=== PATIENT | male | born 1965 | race Caucasian/White ===

== ENCOUNTER 2016-08-04 12:08 | Inpatient (IN) | payer OTHER ==
[2016-08-04 12:47] VITALS: BMI 24.1
--- NOTE | 2016-08-04 13:51 | HP ---
COWS - Scale Resting Pulse: 0= [place] 80 or Below Sweatin= Chills/Flushing Restless Observation: 3= Extraneous Movement Pupil Size: 2= Moderately Dilated Bone or Joint Aches: 4=Acute Joint/Muscle Pain Runny Nose/ Eye Tearin= Runny Nose/Eyes GI Upset > 30mins: 2= Nausea/Diarrhea Tremor Observation: 1= Tremor [place], Not Seen Yawning Observation: 2= >3x During Session Anxiety or Irritability: 1=Feels Anxious/Irritable Goose Flesh Skin: 0=Smooth Skin COWS Score: 18 Admission ROS S - HPI Chief Complaint: DETOX TX OR HEROIN DEPENDENCE Allergies/Adverse Reactions: Allergies Allergy/AdvReac Type Severity Reaction Status Date / Time Fish Containing Products Allergy Severe Rash Verified 08/04/16 12:56 No Known Drug Allergies Allergy Verified 08/04/16 12:56 History of Present Illness: 50 Y/O MALE WITH A HX OF ALCOHOL DEPENDENCE SEEKING DETOX [place] Exam Limitations: No Limitations - Ebola screening Have you traveled outside of the country in the last 21 days: No Have you had contact with anyone from an Ebola affected area: No Have you been sick,other than usual withdrawal symptoms: No Do you have a fever: No - Review of Systems Constitutional: Chills, Loss of Appetite, Night Sweats, Changes in sleep, Unintentional Wgt. Loss EENT: reports: Blurred Vision (WEARS GLASSES), Tearing, Nose Congestion, Dental Problems (MISSING TOP TEETH) Respiratory: reports: Shortness of Breath (HX ASTHMA), Wheezing Cardiac: reports: Lightheadedness GI: reports: Diarrhea, Nausea, Poor Appetite, Poor Fluid Intake, Vomiting : reports: No Symptoms Reported Musculoskeletal: reports: Back Pain, Joint Pain, Muscle Pain Integumentary: reports: No Symptoms Reported Neuro: reports: Headache, Numbness, Tingling, Tremors, Unsteady Gait (HX RIGHT FOOT DROP) Endocrine: reports: No Symptoms Reported Hematology: reports: No Symptoms Reported Psychiatric: reports: Orientated x3, Anxious Other Systems: Reviewed and Negative Patient History - Patient Medical History Hx Anemia: No Hx Asthma: Yes (MDI) Hx Chronic Obstructive Pulmonary Disease (COPD): No Hx Cancer: No Hx Cardiac Disorders: No Hx Congestive Heart Failure: No Hx Hypertension: No Hx Hypercholesterolemia: No Hx Pacemaker: No HX Cerebrovascular Accident: No Hx Seizures: No Hx Dementia: No Hx Diabetes: No Hx Gastrointestinal Disorders: No Hx Liver Disease: No Hx Genitourinary Disorders: No Hx Sexually Transmitted Disorders: No Hx Renal Disease (ESRD): No Hx Thyroid Disease: No Hx Human Immunodeficiency Virus (HIV): No (NEGATIVE HX) Hx Hepatitis C: No Hx Depression: No Hx Suicide Attempt: No (DENIES) Hx Bipolar Disorder: No Hx Schizophrenia: No - Patient Surgical History Past Surgical History: Yes Hx Neurologic Surgery: No Hx Cataract Extraction: No Hx Cardiac Surgery: No Hx Lung Surgery: No Hx Breast Surgery: No Hx Breast Biopsy: No Hx Abdominal Surgery: No Hx Appendectomy: No Hx Cholecystectomy: No Hx Genitourinary Surgery: No Hx Section: No Hx Orthopedic Surgery: Yes (11/02/2010 - spinal fusion) Other Surgical History: Spinal sx 05/01 [facility] to remove hardware Anesthesia Reaction: No - PPD History Documented Results: Positive w/proof Implanted On Prior [facility] Admission?: No Date: 04/10/15 Results: cxr 04/30/16 PPD to be Administered?: No - Reproductive History Patient is a Female of Child Bearing Age (11 -55 yrs old): No (MALE) - Smoking Cessation Smoking history: Current every day smoker Have you smoked in the past 12 months: Yes Aproximately how many cigarettes per day: 2 Cigars Per Day: 0 Hx Chewing Tobacco Use: No Initiated information on smoking cessation: Yes 'Breaking Loose' booklet given: 08/04/16 - Substance & Tx. History Hx Alcohol Use: No Hx Substance Use: Yes (HEROIN) Substance Use Type: Heroin Hx Substance Use Treatment: Yes ([facility] [[email or web address] - Substances Abused Heroin Route: Inhalation Frequency: Daily Amount used: 5-6 bags Age of first use: 46 Date of Last Use: 08/03/16 Family Disease History - Family Disease History Family Disease History: Diabetes: Grandparent (MATERNAL GM/GGF-DECEEASED) Admission Physical Exam BHS - Vital Signs Vital Signs: Vital Signs - 24 hr 08/04/16 12:45 Temperature 97.6 F Pulse Rate 73 Respiratory 18 Rate Blood Pressure 113/68 - Physical General Appearance: Yes: Mild Distress, Moderate Distress, Irritable, Anxious HEENTM: Yes: EOMI, Normocephalic, SHERRON, Pharynx Normal Respiratory: Yes: Chest Non-Tender, Lungs Clear, Normal Breath Sounds, No Respiratory Distress Neck: Yes: Supple, Trachea in good position Breast: Yes: Breast Exam Deferred Cardiology: Yes: Regular Rhythm, Regular Rate, S1, S2 Abdominal: Yes: Normal Bowel Sounds, Non Tender, Flat, Soft Genitourinary: Yes: Other (N/C) Musculoskeletal: Yes: full range of Motion, Gait Steady Extremities: Yes: Normal Range of Motion, Non-Tender Neurological: Yes: sales coordinator II-XII NML intact, Fully Oriented, Alert, Motor Strength 5/5 Integumentary: Yes: Dry, Warm Lymphatic: Yes: Within Normal Limits - Diagnostic (1) Chronic back pain Current Visit: No Status: Acute Qualifiers: Back pain location: back pain in unspecified location Back pain laterality: unspecified Qualified Code(s): M54.9 - Dorsalgia, unspecified ; G89.29 - Other chronic pain (2) Nicotine dependence Current Visit: Yes Status: Chronic (3) Opioid dependence with withdrawal Current Visit: Yes Status: Acute (4) Asthma Current Visit: Yes Status: Chronic (5) History of right foot drop Current Visit: Yes Status: Chronic Cleared for Admission [facility] - Detox or Rehab [facility] Level of Care: Medically Managed Detox Regimen/Protocol: Methadone [facility] Breath Alcohol Content Breath Alcohol Content: 0 Urine Drug Screen - Results Drug Screen Negative: No Urine Drug Screen Results: OPI-Opiates
[2016-08-04] MEDS ORDERED: IBUPROFEN 400 MG TABLET (FP) PO PRN (13:57)
[2016-08-04] MEDS ORDERED: MAG HYDROX/AL HYDROX/SIMETH 30 ML UNIT-DOSE CUP PO PRN (13:57)
[2016-08-04] MEDS ORDERED: hydrOXYzine PAMOATE 25 MG CAPSULE (FP) PO PRN (13:57)
[2016-08-04] MEDS ORDERED: guaiFENesin/D-METHORPHAN HB 10 ML UNIT-DOSE CUPS PO PRN (13:57)
[2016-08-04] MEDS ORDERED: MAGNESIUM HYDROX 2400MG/30ML ORAL SUSPENSION 30 ML CUP PO PRN (13:57)
[2016-08-04] MEDS ORDERED: MAGNESIUM CITRATE 300 ML BOTTLE PO PRN (13:57)
[2016-08-04] MEDS ORDERED: LOPERAMIDE HCL 2 MG CAPSULE PO PRN (13:57)
[2016-08-04] MEDS ORDERED: P-EPHED 60MG/TRIPROLIDI 2.5MG TABLET PO PRN (13:57)
[2016-08-04] MEDS ORDERED: ACETAMINOPHEN 325 MG TABLET (FP) PO PRN (13:57)
[2016-08-04] MEDS ORDERED: NICOTINE POLACRILEX 2 MG GUM BUC PRN (13:57)
[2016-08-04] MEDS ORDERED: MENTHOL/PHENOL 1 EACH UD MM PRN (13:57)
[2016-08-04] MEDS ORDERED: ALBUTEROL SO4 6.7 GM HFA INHALER IH PRN (13:58)
[2016-08-04] MEDS ORDERED: METHADONE HCL 10 MG TABLET (FOR DETOX USE ONLY) PO ONE ×2 (14:33→23:00)
[2016-08-04] MEDS: diazePAM 5 MG TABLET PO PRN ×2 (15:44→18:55)
--- NOTE | 2016-08-04 18:17 | PN ---
S Progress Note Note: RECEIVED NURSE CALL PATIENT REQUESTS ENSURE BMI 24.1 ENSURE 120 ML BID
[2016-08-04 19:01] LABS: URINE APPEARANCE CLEAR; URINE BILIRUBIN NEGATIVE (NEGATIVE); URINE BLOOD NEGATIVE (NEGATIVE); URINE COLOR LTYELLOW; URINE GLUCOSE (UA) NEGATIVE (NEGATIVE); URINE KETONE NEGATIVE (NEGATIVE); URINE LEUK ESTERASE NEGATIVE (NEGATIVE); URINE NITRITE NEGATIVE (NEGATIVE); URINE PROTEIN NEGATIVE (NEGATIVE); URINE UROBILINOGEN NEGATIVE E.U./dl (0.2-1.0)
[2016-08-04] MEDS: THIAMINE HCL 100 MG TABLET (FP) PO SCH (22:28)
[2016-08-04] MEDS: diphenhydrAMINE HCL 50 MG CAPSULE PO PRN (22:28)
[2016-08-04] MEDS: BUDESONIDE/FORMETEROL FUMARATE 80/4.5 mcg INHALER IH SCH (22:29)
[2016-08-05] MEDS: diazePAM 5 MG TABLET PO PRN ×5 (05:53→22:32)
[2016-08-05] MEDS ORDERED: METHADONE HCL 10 MG TABLET (FOR DETOX USE ONLY) PO ONE (10:00)
[2016-08-05] MEDS: PRENATAL VITAMINS W/ FOLIC ACID TABLET (FP) PO SCH (10:19)
[2016-08-05] MEDS: BUDESONIDE/FORMETEROL FUMARATE 80/4.5 mcg INHALER IH SCH ×2 (10:19→22:33)
[2016-08-05 10:37] LABS: MCH 29.2 pg (25.7-33.7); MCHC 33.1 g/dl (32.0-35.9); MEAN CELL VOLUME 88.2 fl (80-96); MEAN PLT VOLUME 8.2 fl (7.5-11.1); PLATELET COUNT 344 K/MM3 (134-434); RDW 16.6 % (11.9-15.9); WHITE BLOOD COUNT 6.6 K/mm3 (4.0-10.0)
--- NOTE | 2016-08-05 10:46 | PN ---
BHS COWS - Scale Resting Pulse: 0= [place] 80 or Below Sweatin= Chills/Flushing Restless Observation: 3= Extraneous Movement Pupil Size: 2= Moderately Dilated Bone or Joint Aches: 4=Acute Joint/Muscle Pain Runny Nose/ Eye Tearin= Nasal Congestion GI Upset > 30mins: 1= Stomach Cramp Tremor Observation of Outstretched Hands: 2= Slight Tremor Visible Yawning Observation: 1= 1-2x During Session Anxiety or Irritability: 2=Irritable/Anxious Goose Flesh Skin: 0=Smooth Skin COWS Score: 17 BHS Progress Note (SOAP) Subjective: ANXIET,SWEATS/CHILLS,FATIGUE,BODYACHES Objective: 08/05/16 10:51 Vital Signs Temperature 97.3 F L 08/05/16 09:57 Pulse Rate 100 H 08/05/16 09:57 Respiratory Rate 20 08/05/16 09:57 Blood Pressure 120/84 08/05/16 09:57 O2 Sat by Pulse Oximetry (%) Laboratory Last Values Urine Color Ltyellow 08/04/16 15:00 Urine Appearance Clear 08/04/16 15:00 Urine pH 6.0 (5.0-8.0) 08/04/16 15:00 Ur Specific [place] 1.014 (1.001-1.035) 08/04/16 15:00 Urine Protein Negative (NEGATIVE) 08/04/16 15:00 Urine Glucose (UA) Negative (NEGATIVE) 08/04/16 15:00 Urine Ketones Negative (NEGATIVE) 08/04/16 15:00 Urine Blood Negative (NEGATIVE) 08/04/16 15:00 Urine Nitrite Negative (NEGATIVE) 08/04/16 15:00 Urine Bilirubin Negative (NEGATIVE) 08/04/16 15:00 Urine Urobilinogen Negative E.U./dl (0.2-1.0) 08/04/16 15:00 Ur Leukocyte Esterase Negative (NEGATIVE) 08/04/16 15:00 Assessment: 08/05/16 10:51 WITHDRAWAL SX Plan: CONTINUE DETOX
[2016-08-05 11:34] LABS: ALBUMIN 3.6 g/dl (3.4-5.0); ALK PHOS 113 U/L (45-117); ANION GAP 8 (8-16); BILIRUBIN,TOTAL 0.3 mg/dL (0.2-1.0); CALCIUM 8.8 mg/dL (8.5-10.1); CO2 30 mmol/L (21-32); CREATININE 0.9 mg/dL (0.7-1.3); GLUCOSE,RANDOM 134 mg/dL (74-106); SGOT/AST 20 U/L (15-37); SGPT/ALT 23 U/L (12-78); TOT PROT 7.3 g/dl (6.4-8.2)
--- NOTE | 2016-08-05 15:35 | EKG ---
Test Reason : Blood Pressure : / mmHG Vent. Rate : 063 BPM Atrial Rate : 063 BPM P-R Int : 134 ms QRS Dur : 090 ms QT Int : 414 ms P-R-T Axes : 055 064 058 degrees QTc Int : 423 ms NORMAL SINUS RHYTHM Confirmed by LUIS VASQUEZ MD ([id number]) on 08/05/2016 3:34:38 PM Referred By: Confirmed By:LUIS VASQUEZ MD
[2016-08-05] MEDS: THIAMINE HCL 100 MG TABLET (FP) PO SCH (22:32)
[2016-08-05] MEDS: diphenhydrAMINE HCL 50 MG CAPSULE PO PRN (22:33)
[2016-08-06] MEDS: diazePAM 5 MG TABLET PO PRN ×5 (05:48→22:32)
[2016-08-06] MEDS ORDERED: METHADONE HCL 5 MG TABLET (FOR DETOX USE ONLY) PO ONE (10:00)
[2016-08-06] MEDS: PRENATAL VITAMINS W/ FOLIC ACID TABLET (FP) PO SCH (10:12)
[2016-08-06] MEDS: BUDESONIDE/FORMETEROL FUMARATE 80/4.5 mcg INHALER IH SCH ×2 (10:13→22:32)
--- NOTE | 2016-08-06 10:58 | PN ---
BHS COWS - Scale Resting Pulse: 1= [place] 81-100 Sweatin=Flushed/Facial Moisture Restless Observation: 3= Extraneous Movement Pupil Size: 0= Normal to Room Light Bone or Joint Aches: 2= Severe Diffuse Aches Runny Nose/ Eye Tearin= Nasal Congestion GI Upset > 30mins: 2= Nausea/Diarrhea Tremor Observation of Outstretched Hands: 2= Slight Tremor Visible Yawning Observation: 0= None Anxiety or Irritability: 2=Irritable/Anxious Goose Flesh Skin: 0=Smooth Skin COWS Score: 15 BHS Progress Note (SOAP) Subjective: sleep interruption,generalized pain,nausea, shakes and sweats Objective: 08/06/16 10:57 Vital Signs 08/06/16 08/06/16 08/06/16 03:30 06:27 10:53 Temperature 97.6 F 97.9 F Pulse Rate 87 104 H Respiratory 20 18 19 Rate Blood Pressure 105/76 122/85 Laboratory Last Values WBC 6.6 K/mm3 (4.0-10.0) 08/05/16 06:15 RBC 4.76 M/mm3 (4.00-5.60) D 08/05/16 06:15 Hgb 13.9 GM/dL (11.7-16.9) D 08/05/16 06:15 Hct 41.9 % (35.4-49) D 08/05/16 06:15 MCV 88.2 fl (80-96) 08/05/16 06:15 MCHC 33.1 g/dl (32.0-35.9) 08/05/16 06:15 RDW 16.6 % (11.9-15.9) H 08/05/16 06:15 Plt Count 344 K/MM3 (134-434) D 08/05/16 06:15 MPV 8.2 fl (7.5-11.1) 08/05/16 06:15 Sodium 139 mmol/L (136-145) 08/05/16 06:15 Potassium 4.2 mmol/L (3.5-5.1) 08/05/16 06:15 Chloride 101 mmol/L (98-107) 08/05/16 06:15 Carbon Dioxide 30 mmol/L (21-32) 08/05/16 06:15 Anion Gap 8 (8-16) 08/05/16 06:15 BUN 11 mg/dL (7-18) D 08/05/16 06:15 Creatinine 0.9 mg/dL (0.7-1.3) D 08/05/16 06:15 Creat Clearance w eGFR > 60 (>60) 08/05/16 06:15 Random Glucose 134 mg/dL (74-106) H D 08/05/16 06:15 Calcium 8.8 mg/dL (8.5-10.1) 08/05/16 06:15 Total Bilirubin 0.3 mg/dL (0.2-1.0) D 08/05/16 06:15 AST 20 U/L (15-37) 08/05/16 06:15 ALT 23 U/L (12-78) 08/05/16 06:15 Alkaline Phosphatase 113 U/L (45-117) 08/05/16 06:15 Total Protein 7.3 g/dl (6.4-8.2) D 08/05/16 06:15 Albumin 3.6 g/dl (3.4-5.0) D 08/05/16 06:15 Urine Color Ltyellow 08/04/16 15:00 Urine Appearance Clear 08/04/16 15:00 Urine pH 6.0 (5.0-8.0) 08/04/16 15:00 Ur Specific [place] 1.014 (1.001-1.035) 08/04/16 15:00 Urine Protein Negative (NEGATIVE) 08/04/16 15:00 Urine Glucose (UA) Negative (NEGATIVE) 08/04/16 15:00 Urine Ketones Negative (NEGATIVE) 08/04/16 15:00 Urine Blood Negative (NEGATIVE) 08/04/16 15:00 Urine Nitrite Negative (NEGATIVE) 08/04/16 15:00 Urine Bilirubin Negative (NEGATIVE) 08/04/16 15:00 Urine Urobilinogen Negative E.U./dl (0.2-1.0) 08/04/16 15:00 Ur Leukocyte Esterase Negative (NEGATIVE) 08/04/16 15:00 RPR Titer Nonreactive (NONREACTIVE) 08/05/16 06:15 Labs noted Assessment: 08/06/16 10:58 withdrawal sx Plan: continue detox
[2016-08-06] MEDS: THIAMINE HCL 100 MG TABLET (FP) PO SCH (22:32)
[2016-08-07] MEDS: diazePAM 5 MG TABLET PO PRN ×3 (02:29→13:28)
[2016-08-07] MEDS ORDERED: METHADONE HCL 5 MG TABLET (FOR DETOX USE ONLY) PO ONE (10:00)
[2016-08-07] MEDS: PRENATAL VITAMINS W/ FOLIC ACID TABLET (FP) PO SCH (10:18)
[2016-08-07] MEDS: BUDESONIDE/FORMETEROL FUMARATE 80/4.5 mcg INHALER IH SCH ×2 (10:18→22:11)
--- NOTE | 2016-08-07 13:58 | PN ---
S Progress Note (SOAP) Subjective: Nausea, diarrhea, interrupted sleep (benadryl ineffective, wants ambien), sweating Objective: 08/07/16 13:56 Last Vital Signs Temp Pulse Resp BP Pulse Ox 96 F L 98 H 20 132/82 08/07/16 11:31 08/07/16 11:31 08/07/16 11:31 08/07/16 11:31 Laboratory Tests 08/04/16 08/05/16 08/05/16 15:00 06:15 06:15 WBC 6.6 RBC 4.76 D Hgb 13.9 D Hct 41.9 D MCV 88.2 MCHC 33.1 RDW 16.6 H Plt Count 344 D MPV 8.2 Sodium 139 Potassium 4.2 Chloride 101 Carbon Dioxide 30 Anion Gap 8 BUN 11 D Creatinine 0.9 D Creat Clearance w eGFR > 60 Random Glucose 134 H D Calcium 8.8 Total Bilirubin 0.3 D AST 20 ALT 23 Alkaline Phosphatase 113 Total Protein 7.3 D Albumin 3.6 D Urine Color Ltyellow Urine Appearance Clear Urine pH 6.0 Ur Specific [place] 1.014 Urine Protein Negative Urine Glucose (UA) Negative Urine Ketones Negative Urine Blood Negative Urine Nitrite Negative Urine Bilirubin Negative Urine Urobilinogen Negative Ur Leukocyte Esterase Negative RPR Titer 08/05/16 06:15 WBC RBC Hgb Hct MCV MCHC RDW Plt Count MPV Sodium Potassium Chloride Carbon Dioxide Anion Gap BUN Creatinine Creat Clearance w eGFR Random Glucose Calcium Total Bilirubin AST ALT Alkaline Phosphatase Total Protein Albumin Urine Color Urine Appearance Urine pH Ur Specific [place] Urine Protein Urine Glucose (UA) Urine Ketones Urine Blood Urine Nitrite Urine Bilirubin Urine Urobilinogen Ur Leukocyte Esterase RPR Titer Nonreactive Labs noted: serum glucose 134 Assessment: 08/07/16 13:57 Withdrawal symptoms Noted with Hyperglycemia Plan: Continue detox Hyperglycemia: monitor
[2016-08-07] MEDS ORDERED: ZOLPIDEM TARTRATE 10 MG TABLET (PARK CARE ONLY) PO PRN (14:00)
[2016-08-07] MEDS: THIAMINE HCL 100 MG TABLET (FP) PO SCH (22:12)
[2016-08-07] MEDS: diphenhydrAMINE HCL 50 MG CAPSULE PO PRN (22:12)
[2016-08-08] MEDS ORDERED: METHADONE HCL 10 MG TABLET (FOR DETOX USE ONLY) PO ONE (10:00)
[2016-08-08] MEDS ORDERED: ONDANSETRON *ODT* 4 MG TABLET SL ONE (10:01)
[2016-08-08] MEDS ORDERED: ONDANSETRON *ODT* 4 MG TABLET SL PRN (10:01)
[2016-08-08] MEDS: PRENATAL VITAMINS W/ FOLIC ACID TABLET (FP) PO SCH (10:10)
[2016-08-08] MEDS: BUDESONIDE/FORMETEROL FUMARATE 80/4.5 mcg INHALER IH SCH ×2 (10:11→22:42)
--- NOTE | 2016-08-08 10:16 | PN ---
BHS Progress Note (SOAP) Subjective: NAUSEA,SWEATING,INTERRUPTED SLEEP,RESTLESS. Objective: 08/08/16 10:14 Vital Signs - 8 hr 08/08/16 08/08/16 08/08/16 03:43 06:13 09:27 Temperature 96.6 F L 98.8 F Pulse Rate 102 H 106 H Respiratory 18 18 18 Rate Blood Pressure 123/78 134/85 Laboratory Tests 08/04/16 08/05/16 08/05/16 15:00 06:15 06:15 WBC 6.6 RBC 4.76 D Hgb 13.9 D Hct 41.9 D MCV 88.2 MCHC 33.1 RDW 16.6 H Plt Count 344 D MPV 8.2 Sodium 139 Potassium 4.2 Chloride 101 Carbon Dioxide 30 Anion Gap 8 BUN 11 D Creatinine 0.9 D Creat Clearance w eGFR > 60 Random Glucose 134 H D Calcium 8.8 Total Bilirubin 0.3 D AST 20 ALT 23 Alkaline Phosphatase 113 Total Protein 7.3 D Albumin 3.6 D Urine Color Ltyellow Urine Appearance Clear Urine pH 6.0 Ur Specific [place] 1.014 Urine Protein Negative Urine Glucose (UA) Negative Urine Ketones Negative Urine Blood Negative Urine Nitrite Negative Urine Bilirubin Negative Urine Urobilinogen Negative Ur Leukocyte Esterase Negative RPR Titer 08/05/16 06:15 WBC RBC Hgb Hct MCV MCHC RDW Plt Count MPV Sodium Potassium Chloride Carbon Dioxide Anion Gap BUN Creatinine Creat Clearance w eGFR Random Glucose Calcium Total Bilirubin AST ALT Alkaline Phosphatase Total Protein Albumin Urine Color Urine Appearance Urine pH Ur Specific [place] Urine Protein Urine Glucose (UA) Urine Ketones Urine Blood Urine Nitrite Urine Bilirubin Urine Urobilinogen Ur Leukocyte Esterase RPR Titer Nonreactive LABS NOTED Assessment: 08/08/16 10:14 WITHDRAWAL SX. Plan: CONTINUE DETOX
[2016-08-08] MEDS: THIAMINE HCL 100 MG TABLET (FP) PO SCH (22:42)
[2016-08-09] MEDS ORDERED: METHADONE HCL 5 MG TABLET (FOR DETOX USE ONLY) PO ONE (06:00)
--- NOTE | 2016-08-09 08:28 | DS ---
[facility] Detox Discharge Summary Admission Date: 08/04/16 Discharge Date: 08/09/16 - History Present History: Opioid Dependence Additional Comments: DETOX COMPLETED Pertinent Past History: ASTHMA HX RIGHT FOOT DROP CHRONIC BACK PAIN HX HEPATIC ENCEPHALOPATHY S/P SPINAL FUSION - Physical Exam Results Vital Signs: Vital Signs Temperature 97.8 F 08/09/16 06:36 Pulse Rate 91 H 08/09/16 06:36 Respiratory Rate 18 08/09/16 06:36 Blood Pressure 118/79 08/09/16 06:36 O2 Sat by Pulse Oximetry (%) Pertinent Admission Physical Exam Findings: WITHDRAWAL SX Laboratory Last Values WBC 6.6 K/mm3 (4.0-10.0) 08/05/16 06:15 RBC 4.76 M/mm3 (4.00-5.60) D 08/05/16 06:15 Hgb 13.9 GM/dL (11.7-16.9) D 08/05/16 06:15 Hct 41.9 % (35.4-49) D 08/05/16 06:15 MCV 88.2 fl (80-96) 08/05/16 06:15 MCHC 33.1 g/dl (32.0-35.9) 08/05/16 06:15 RDW 16.6 % (11.9-15.9) H 08/05/16 06:15 Plt Count 344 K/MM3 (134-434) D 08/05/16 06:15 MPV 8.2 fl (7.5-11.1) 08/05/16 06:15 Sodium 139 mmol/L (136-145) 08/05/16 06:15 Potassium 4.2 mmol/L (3.5-5.1) 08/05/16 06:15 Chloride 101 mmol/L (98-107) 08/05/16 06:15 Carbon Dioxide 30 mmol/L (21-32) 08/05/16 06:15 Anion Gap 8 (8-16) 08/05/16 06:15 BUN 11 mg/dL (7-18) D 08/05/16 06:15 Creatinine 0.9 mg/dL (0.7-1.3) D 08/05/16 06:15 Creat Clearance w eGFR > 60 (>60) 08/05/16 06:15 Random Glucose 134 mg/dL (74-106) H D 08/05/16 06:15 Calcium 8.8 mg/dL (8.5-10.1) 08/05/16 06:15 Total Bilirubin 0.3 mg/dL (0.2-1.0) D 08/05/16 06:15 AST 20 U/L (15-37) 08/05/16 06:15 ALT 23 U/L (12-78) 08/05/16 06:15 Alkaline Phosphatase 113 U/L (45-117) 08/05/16 06:15 Total Protein 7.3 g/dl (6.4-8.2) D 08/05/16 06:15 Albumin 3.6 g/dl (3.4-5.0) D 08/05/16 06:15 Urine Color Ltyellow 08/04/16 15:00 Urine Appearance Clear 08/04/16 15:00 Urine pH 6.0 (5.0-8.0) 08/04/16 15:00 Ur Specific [place] 1.014 (1.001-1.035) 08/04/16 15:00 Urine Protein Negative (NEGATIVE) 08/04/16 15:00 Urine Glucose (UA) Negative (NEGATIVE) 08/04/16 15:00 Urine Ketones Negative (NEGATIVE) 08/04/16 15:00 Urine Blood Negative (NEGATIVE) 08/04/16 15:00 Urine Nitrite Negative (NEGATIVE) 08/04/16 15:00 Urine Bilirubin Negative (NEGATIVE) 08/04/16 15:00 Urine Urobilinogen Negative E.U./dl (0.2-1.0) 08/04/16 15:00 Ur Leukocyte Esterase Negative (NEGATIVE) 08/04/16 15:00 RPR Titer Nonreactive (NONREACTIVE) 08/05/16 06:15 - Treatment Hospital Course: Detox Protocol Followed, Detoxed Safely, Responded well, Discharged Condition Good Patient has Accepted a Rehab Referral to: REFUSED - Medication Discharge Medications: Ambulatory Orders Albuterol Sulfate Inhaler - [Ventolin HFA Inhaler -] 2 inh IH Q4H PRN 08/01/12 Salmeterol/Fluticasone [Advair 500Mcg/50Mcg -] 1 inh PO BID 08/04/16 - Diagnosis (1) Chronic back pain Current Visit: Yes Status: Chronic Qualifiers: Back pain location: back pain in unspecified location Back pain laterality: unspecified Qualified Code(s): M54.9 - Dorsalgia, unspecified ; G89.29 - Other chronic pain (2) Nicotine dependence Current Visit: Yes Status: Chronic (3) Opioid dependence with withdrawal Current Visit: Yes Status: Acute (4) Asthma Current Visit: Yes Status: Chronic (5) History of right foot drop Current Visit: Yes Status: Chronic - AMA Did Patient Leave Against Medical Advice: No
[2016-08-09 09:42] VITALS: BP 131/90; PULSE 115; TEMP 97.3
== END 2016-08-09 09:25 | disposition home or self-care (01) | DRG 897 ==
LOC: YASAS 12:08 → Y3N 14:30
PROVIDERS: ADMIT Internal Medicine; ATTEND Internal Medicine
PROC: HZ2ZZZZ Detoxification Services for Substance Abuse Treatment (ICD-10-PCS; principal; 2016-08-04)
DX: F11.23 Opioid dependence with withdrawal (principal); F17.210 Nicotine dependence, cigarettes, uncomplicated; M54.9 Dorsalgia, unspecified; G89.29 Other chronic pain; J45.909 Unspecified asthma, uncomplicated; R73.9 Hyperglycemia, unspecified; M21.371 Foot drop, right foot; Z98.1 Arthrodesis status
CPT/HCPCS: 36415; 80053; 81003; 85027; 86593; 93005; 93010

== ENCOUNTER 2017-05-12 09:33 | Inpatient (IN) | payer OTHER ==
[2017-05-12 10:51] VITALS: BMI 23.8
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
[2017-05-12] MEDS ORDERED: IBUPROFEN 400 MG TABLET (FP) PO PRN (13:01)
[2017-05-12] MEDS ORDERED: P-EPHED 60MG/TRIPROLIDI 2.5MG TABLET PO PRN (13:01)
[2017-05-12] MEDS ORDERED: MENTHOL/PHENOL 1 EACH UD MM PRN (13:01)
[2017-05-12] MEDS ORDERED: LOPERAMIDE HCL 2 MG CAPSULE PO PRN (13:01)
[2017-05-12] MEDS ORDERED: NICOTINE POLACRILEX 2 MG GUM BC PRN (13:01)
[2017-05-12] MEDS ORDERED: ACETAMINOPHEN 325 MG TABLET (FP) PO PRN (13:01)
[2017-05-12] MEDS ORDERED: MAGNESIUM HYDROX 2400MG/30ML ORAL SUSPENSION 30 ML CUP PO PRN (13:01)
[2017-05-12] MEDS ORDERED: guaiFENesin/D-METHORPHAN HB 10 ML UNIT-DOSE CUPS PO PRN (13:01)
[2017-05-12] MEDS ORDERED: MAG HYDROX/AL HYDROX/SIMETH 30 ML UNIT-DOSE CUP PO PRN (13:01)
[2017-05-12] MEDS ORDERED: hydrOXYzine PAMOATE 25 MG CAPSULE (FP) PO PRN (13:01)
[2017-05-12] MEDS ORDERED: MAGNESIUM CITRATE 300 ML BOTTLE PO PRN (13:01)
[2017-05-12] MEDS ORDERED: ALBUTEROL SO4 18 GM HFA INHALER IH PRN (13:08)
[2017-05-12] MEDS ORDERED: METHADONE HCL 10 MG TABLET (FOR DETOX USE ONLY) PO ONE ×2 (14:00→23:00)
[2017-05-12] MEDS ORDERED: LIDOCAINE 5% TOPICAL PATCH TP ONE (14:00)
[2017-05-12] MEDS: diazePAM 5 MG TABLET PO PRN ×2 (14:29→22:05)
[2017-05-12 18:58] LABS: URINE APPEARANCE SLCLOUDY; URINE BILIRUBIN NEGATIVE (NEGATIVE); URINE BLOOD NEGATIVE (NEGATIVE); URINE COLOR YELLOW; URINE GLUCOSE (UA) NEGATIVE (NEGATIVE); URINE KETONE NEGATIVE (NEGATIVE); URINE NITRITE NEGATIVE (NEGATIVE); URINE PROTEIN NEGATIVE (NEGATIVE); URINE UROBILINOGEN NEGATIVE mg/dL (0.2-1.0)
[2017-05-12 21:22] LABS: URINE LEUK ESTERASE Negative (NEGATIVE)
[2017-05-12] MEDS: THIAMINE HCL 100 MG TABLET (FP) PO SCH (22:04)
[2017-05-12] MEDS: BUDESONIDE/FORMETEROL FUMARATE 160/4.5 mcg INHALER IH SCH (22:05)
[2017-05-12] MEDS: diphenhydrAMINE HCL 50 MG CAPSULE PO PRN (22:06)
[2017-05-12] MEDS: LIDOCAINE PATCH REMOVAL MC SCH (22:06)
[2017-05-13] MEDS: diphenhydrAMINE HCL 50 MG CAPSULE PO PRN ×2 (01:26→22:40)
[2017-05-13] MEDS ORDERED: METHADONE HCL 10 MG TABLET (FOR DETOX USE ONLY) PO ONE (10:00)
[2017-05-13] MEDS: BUDESONIDE/FORMETEROL FUMARATE 160/4.5 mcg INHALER IH SCH ×2 (10:35→22:40)
[2017-05-13] MEDS: PRENATAL VITAMINS W/ FOLIC ACID TABLET (FP) PO SCH (10:35)
[2017-05-13] MEDS: CYCLOBENZAPRINE HCL 10 MG TABLET (FP) PO PRN (10:37)
[2017-05-13] MEDS: diazePAM 5 MG TABLET PO PRN ×2 (10:37→19:57)
[2017-05-13 11:15] LABS: ALBUMIN 4.2 g/dl (3.4-5.0)
[2017-05-13 11:22] LABS: ALK PHOS 109 U/L (45-117); ANION GAP 6 (8-16); BILIRUBIN,TOTAL 0.7 mg/dL (0.2-1.0); CALCIUM 9.2 mg/dL (8.5-10.1); CO2 29 mmol/L (21-32); GLUCOSE,RANDOM 81 mg/dL (74-106); SGOT/AST 25 U/L (15-37); SGPT/ALT 25 U/L (12-78); TOT PROT 7.8 g/dl (6.4-8.2)
[2017-05-13 11:23] LABS: MCH 30.7 pg (25.7-33.7); MCHC 33.6 g/dl (32.0-35.9); MEAN CELL VOLUME 91.4 fl (80-96); MEAN PLT VOLUME 9.2 fl (7.5-11.1); PLATELET COUNT 227 K/MM3 (134-434); RDW 14.3 % (11.9-15.9)
[2017-05-13 11:43] LABS: PLATELET ESTIMATE ADEQUATE (NORMAL)
--- NOTE | 2017-05-13 16:22 | PN ---
S COWS - Scale Resting Pulse: 0= [place] 80 or Below Sweatin= No chills or Flushing Restless Observation: 1= Difficult to Sit Still Pupil Size: 0= Normal to Room Light Bone or Joint Aches: 2= Severe Diffuse Aches Runny Nose/ Eye Tearin= None GI Upset > 30mins: 3= Vomiting/Diarrhea Tremor Observation of Outstretched Hands: 2= Slight Tremor Visible Yawning Observation: 1= 1-2x During Session Anxiety or Irritability: 2=Irritable/Anxious Goose Flesh Skin: 3=Piloerection COWS Score: 14 S Progress Note (SOAP) Subjective: Tremors, Body Aches, Vomiting, Interrupted sleep, Anxious. Objective: PT. A & O X 3, OBSERVED AMBULATING ON UNIT. NO ACUTE DISTRESS. 05/13/17 16:21 Vital Signs Temperature 97.8 F 05/13/17 09:40 Pulse Rate 70 05/13/17 09:40 Respiratory Rate 18 05/13/17 09:40 Blood Pressure 137/90 05/13/17 09:40 O2 Sat by Pulse Oximetry (%) Laboratory Tests 05/12/17 05/13/17 05/13/17 17:30 06:08 06:08 WBC 6.0 RBC 5.01 Hgb 15.4 D Hct 45.8 MCV 91.4 MCH 30.7 MCHC 33.6 RDW 14.3 D Plt Count 227 D MPV 9.2 D Platelet Estimate Adequate Platelet Comment No clumping noted Sodium 137 Potassium 4.0 Chloride 102 Carbon Dioxide 29 Anion Gap 6 L BUN 11 Creatinine 1.0 Creat Clearance w eGFR > 60 Random Glucose 81 D Calcium 9.2 Total Bilirubin 0.7 D AST 25 D ALT 25 Alkaline Phosphatase 109 Total Protein 7.8 Albumin 4.2 Urine Color Yellow Urine Appearance Slcloudy Urine pH 6.0 Ur Specific [place] 1.015 Urine Protein Negative Urine Glucose (UA) Negative Urine Ketones Negative Urine Blood Negative Urine Nitrite Negative Urine Bilirubin Negative Urine Urobilinogen Negative Ur Leukocyte Esterase Negative RPR Titer 05/13/17 06:08 WBC RBC Hgb Hct MCV MCH MCHC RDW Plt Count MPV Platelet Estimate Platelet Comment Sodium Potassium Chloride Carbon Dioxide Anion Gap BUN Creatinine Creat Clearance w eGFR Random Glucose Calcium Total Bilirubin AST ALT Alkaline Phosphatase Total Protein Albumin Urine Color Urine Appearance Urine pH Ur Specific [place] Urine Protein Urine Glucose (UA) Urine Ketones Urine Blood Urine Nitrite Urine Bilirubin Urine Urobilinogen Ur Leukocyte Esterase RPR Titer Nonreactive LABS NOTED. Assessment: 05/13/17 16:21 WITHDRAWAL SYMPTOMS. Plan: CONTINUED DETOX. PRN FLEXERIL FOR BODY ACHES / MUSCLE SPASMS. INCREASE DAILY PO FLUID INTAKE.
[2017-05-13] MEDS: THIAMINE HCL 100 MG TABLET (FP) PO SCH (22:40)
[2017-05-13] MEDS: LIDOCAINE PATCH REMOVAL MC SCH (22:41)
--- NOTE | 2017-05-14 09:12 | EKG ---
Test Reason : Blood Pressure : / mmHG Vent. Rate : 056 BPM Atrial Rate : 056 BPM P-R Int : 156 ms QRS Dur : 094 ms QT Int : 454 ms P-R-T Axes : 045 068 055 degrees QTc Int : 438 ms SINUS BRADYCARDIA OTHERWISE NORMAL ECG WHEN COMPARED WITH ECG OF 04-AUG-2016 15:55, NO SIGNIFICANT CHANGE WAS FOUND Confirmed by DESHAWN GHOTRA MD ([id number]) on 05/14/2017 9:12:05 AM Referred By: Radha JONES Confirmed By:DESHAWN GHOTRA MD
[2017-05-14] MEDS ORDERED: METHADONE HCL 5 MG TABLET (FOR DETOX USE ONLY) PO ONE (10:00)
[2017-05-14] MEDS: BUDESONIDE/FORMETEROL FUMARATE 160/4.5 mcg INHALER IH SCH ×2 (10:31→22:22)
[2017-05-14] MEDS: PRENATAL VITAMINS W/ FOLIC ACID TABLET (FP) PO SCH (10:31)
[2017-05-14] MEDS: diazePAM 5 MG TABLET PO PRN ×3 (10:32→22:21)
--- NOTE | 2017-05-14 15:47 | PN ---
BHS COWS - Scale Resting Pulse: 4= [place] > 121 Sweatin= Chills/Flushing Restless Observation: 3= Extraneous Movement Pupil Size: 0= Normal to Room Light Bone or Joint Aches: 2= Severe Diffuse Aches Runny Nose/ Eye Tearin= Runny Nose/Eyes GI Upset > 30mins: 3= Vomiting/Diarrhea Tremor Observation of Outstretched Hands: 2= Slight Tremor Visible Yawning Observation: 0= None Anxiety or Irritability: 2=Irritable/Anxious Goose Flesh Skin: 0=Smooth Skin COWS Score: 19 BHS Progress Note (SOAP) Subjective: Nausea, chills, tremor, sweating, interrupted sleep, diarrhea, anxious Objective: 05/14/17 15:43 Last Vital Signs Temp Pulse Resp BP Pulse Ox 99.0 F 129 H 18 125/86 05/14/17 12:52 05/14/17 12:52 05/14/17 12:52 05/14/17 12:52 Tachycardic: pulse 129 Laboratory Tests 05/12/17 05/13/17 05/13/17 17:30 06:08 06:08 WBC 6.0 RBC 5.01 Hgb 15.4 D Hct 45.8 MCV 91.4 MCH 30.7 MCHC 33.6 RDW 14.3 D Plt Count 227 D MPV 9.2 D Platelet Estimate Adequate Platelet Comment No clumping noted Sodium 137 Potassium 4.0 Chloride 102 Carbon Dioxide 29 Anion Gap 6 L BUN 11 Creatinine 1.0 Creat Clearance w eGFR > 60 Random Glucose 81 D Calcium 9.2 Total Bilirubin 0.7 D AST 25 D ALT 25 Alkaline Phosphatase 109 Total Protein 7.8 Albumin 4.2 Urine Color Yellow Urine Appearance Slcloudy Urine pH 6.0 Ur Specific [place] 1.015 Urine Protein Negative Urine Glucose (UA) Negative Urine Ketones Negative Urine Blood Negative Urine Nitrite Negative Urine Bilirubin Negative Urine Urobilinogen Negative Ur Leukocyte Esterase Negative RPR Titer 05/13/17 06:08 WBC RBC Hgb Hct MCV MCH MCHC RDW Plt Count MPV Platelet Estimate Platelet Comment Sodium Potassium Chloride Carbon Dioxide Anion Gap BUN Creatinine Creat Clearance w eGFR Random Glucose Calcium Total Bilirubin AST ALT Alkaline Phosphatase Total Protein Albumin Urine Color Urine Appearance Urine pH Ur Specific [place] Urine Protein Urine Glucose (UA) Urine Ketones Urine Blood Urine Nitrite Urine Bilirubin Urine Urobilinogen Ur Leukocyte Esterase RPR Titer Nonreactive Labs noted Assessment: 05/14/17 15:45 Withdrawal symptoms Noted with tachycardia Plan: Continue detox Tachycardia most likely secondary to withdrawal symptoms and anxiety: encouraged relaxation techniques (deep breathing exercises, watching TV etc.), continue prn valium/vistaril, encouraged to drink lots of water, continue to monitor
[2017-05-14] MEDS: CYCLOBENZAPRINE HCL 10 MG TABLET (FP) PO PRN ×2 (17:20→22:21)
[2017-05-14] MEDS ORDERED: ZOLPIDEM TARTRATE 10 MG TABLET (PARK CARE ONLY) PO PRN (21:00)
[2017-05-14] MEDS: LIDOCAINE PATCH REMOVAL MC SCH (22:21)
[2017-05-14] MEDS: THIAMINE HCL 100 MG TABLET (FP) PO SCH (22:21)
[2017-05-14] MEDS: diphenhydrAMINE HCL 50 MG CAPSULE PO PRN (22:22)
[2017-05-15] MEDS ORDERED: METHADONE HCL 5 MG TABLET (FOR DETOX USE ONLY) PO ONE (10:00)
[2017-05-15] MEDS: PRENATAL VITAMINS W/ FOLIC ACID TABLET (FP) PO SCH (10:51)
[2017-05-15] MEDS: BUDESONIDE/FORMETEROL FUMARATE 160/4.5 mcg INHALER IH SCH ×2 (10:51→22:10)
--- NOTE | 2017-05-15 11:45 | PN ---
BHS Progress Note (SOAP) Subjective: Tremors, Sweating, Stomach Cramping, Interrupted sleep, Anxious, Body Aches. Objective: PT. A & O X 2 (UNCERTAIN ABOUT DAY / DATE). NO ACUTE DISTRESS. 05/15/17 11:43 Vital Signs Temperature 98.8 F 05/15/17 09:21 Pulse Rate 84 05/15/17 09:21 Respiratory Rate 18 05/15/17 09:21 Blood Pressure 129/80 05/15/17 09:21 O2 Sat by Pulse Oximetry (%) Laboratory Tests 05/12/17 05/13/17 05/13/17 17:30 06:08 06:08 WBC 6.0 RBC 5.01 Hgb 15.4 D Hct 45.8 MCV 91.4 MCH 30.7 MCHC 33.6 RDW 14.3 D Plt Count 227 D MPV 9.2 D Platelet Estimate Adequate Platelet Comment No clumping noted Sodium 137 Potassium 4.0 Chloride 102 Carbon Dioxide 29 Anion Gap 6 L BUN 11 Creatinine 1.0 Creat Clearance w eGFR > 60 Random Glucose 81 D Calcium 9.2 Total Bilirubin 0.7 D AST 25 D ALT 25 Alkaline Phosphatase 109 Total Protein 7.8 Albumin 4.2 Urine Color Yellow Urine Appearance Slcloudy Urine pH 6.0 Ur Specific [place] 1.015 Urine Protein Negative Urine Glucose (UA) Negative Urine Ketones Negative Urine Blood Negative Urine Nitrite Negative Urine Bilirubin Negative Urine Urobilinogen Negative Ur Leukocyte Esterase Negative RPR Titer 05/13/17 06:08 WBC RBC Hgb Hct MCV MCH MCHC RDW Plt Count MPV Platelet Estimate Platelet Comment Sodium Potassium Chloride Carbon Dioxide Anion Gap BUN Creatinine Creat Clearance w eGFR Random Glucose Calcium Total Bilirubin AST ALT Alkaline Phosphatase Total Protein Albumin Urine Color Urine Appearance Urine pH Ur Specific [place] Urine Protein Urine Glucose (UA) Urine Ketones Urine Blood Urine Nitrite Urine Bilirubin Urine Urobilinogen Ur Leukocyte Esterase RPR Titer Nonreactive LABS NOTED. Assessment: 05/15/17 11:44 WITHDRAWAL SYMPTOMS. Plan: CONTINUE DETOX. INCREASE DAILY PO FLUID INTAKE.
[2017-05-15] MEDS: diazePAM 5 MG TABLET PO PRN (12:18)
[2017-05-15] MEDS: LIDOCAINE 5% TOPICAL PATCH TP SCH (15:54)
[2017-05-15] MEDS ORDERED: LIDOCAINE PATCH REMOVAL MC SCH (22:00)
[2017-05-15] MEDS: CYCLOBENZAPRINE HCL 10 MG TABLET (FP) PO PRN (22:10)
[2017-05-15] MEDS: THIAMINE HCL 100 MG TABLET (FP) PO SCH (22:10)
[2017-05-16] MEDS ORDERED: METHADONE HCL 10 MG TABLET (FOR DETOX USE ONLY) PO ONE (10:00)
[2017-05-16] MEDS: PRENATAL VITAMINS W/ FOLIC ACID TABLET (FP) PO SCH (10:26)
[2017-05-16] MEDS: LIDOCAINE 5% TOPICAL PATCH TP SCH (10:27)
[2017-05-16] MEDS: BUDESONIDE/FORMETEROL FUMARATE 160/4.5 mcg INHALER IH SCH (10:28)
--- NOTE | 2017-05-16 12:37 | PN ---
BHS Progress Note (SOAP) Subjective: Interrupted Sleep, Sweating, Body Aches. Objective: PT. A & O X 3. NO ACUTE DISTRESS. 05/16/17 12:35 Vital Signs Temperature 97.1 F L 05/16/17 10:01 Pulse Rate 100 H 05/16/17 10:01 Respiratory Rate 20 05/16/17 10:01 Blood Pressure 123/69 05/16/17 10:01 O2 Sat by Pulse Oximetry (%) Laboratory Tests 05/12/17 05/13/17 05/13/17 17:30 06:08 06:08 WBC 6.0 RBC 5.01 Hgb 15.4 D Hct 45.8 MCV 91.4 MCH 30.7 MCHC 33.6 RDW 14.3 D Plt Count 227 D MPV 9.2 D Platelet Estimate Adequate Platelet Comment No clumping noted Sodium 137 Potassium 4.0 Chloride 102 Carbon Dioxide 29 Anion Gap 6 L BUN 11 Creatinine 1.0 Creat Clearance w eGFR > 60 Random Glucose 81 D Calcium 9.2 Total Bilirubin 0.7 D AST 25 D ALT 25 Alkaline Phosphatase 109 Total Protein 7.8 Albumin 4.2 Urine Color Yellow Urine Appearance Slcloudy Urine pH 6.0 Ur Specific [place] 1.015 Urine Protein Negative Urine Glucose (UA) Negative Urine Ketones Negative Urine Blood Negative Urine Nitrite Negative Urine Bilirubin Negative Urine Urobilinogen Negative Ur Leukocyte Esterase Negative RPR Titer 05/13/17 06:08 WBC RBC Hgb Hct MCV MCH MCHC RDW Plt Count MPV Platelet Estimate Platelet Comment Sodium Potassium Chloride Carbon Dioxide Anion Gap BUN Creatinine Creat Clearance w eGFR Random Glucose Calcium Total Bilirubin AST ALT Alkaline Phosphatase Total Protein Albumin Urine Color Urine Appearance Urine pH Ur Specific [place] Urine Protein Urine Glucose (UA) Urine Ketones Urine Blood Urine Nitrite Urine Bilirubin Urine Urobilinogen Ur Leukocyte Esterase RPR Titer Nonreactive LABS NOTED. Assessment: 05/16/17 12:36 WITHDRAWAL SYMPTOMS. Plan: CONTINUED DETOX.
[2017-05-16 17:27] VITALS: BP 128/70; PULSE 77; TEMP 98.1
[2017-05-17] MEDS ORDERED: METHADONE HCL 5 MG TABLET (FOR DETOX USE ONLY) PO ONE (06:00)
--- NOTE | 2017-05-17 17:33 | DS ---
[facility] Detox Discharge Summary Admission Date: 05/12/17 Discharge Date: 05/16/17 - History Present History: Opioid Dependence Additional Comments: RECEIVED NURSE CALL THAT THE PATIENT INSISTS TO LEAVE THE FACILITY IMMEDIATELY PATIENT REFUSES TO WAIT FACE TO FACE WITH THE PROVIDER Pertinent Past History: NICOTINE DEPENDENCE ASTHMA CHRONIC BACK PAIN - Physical Exam Results Vital Signs: Vital Signs Temperature 98.1 F 05/16/17 17:26 Pulse Rate 77 05/16/17 17:26 Respiratory Rate 18 05/16/17 17:26 Blood Pressure 128/70 05/16/17 17:26 O2 Sat by Pulse Oximetry (%) Pertinent Admission Physical Exam Findings: WITHDRAWAL SX Laboratory Last Values WBC 6.0 K/mm3 (4.0-10.0) 05/13/17 06:08 RBC 5.01 M/mm3 (4.00-5.60) 05/13/17 06:08 Hgb 15.4 GM/dL (11.7-16.9) D 05/13/17 06:08 Hct 45.8 % (35.4-49) 05/13/17 06:08 MCV 91.4 fl (80-96) 05/13/17 06:08 MCH 30.7 pg (25.7-33.7) 05/13/17 06:08 MCHC 33.6 g/dl (32.0-35.9) 05/13/17 06:08 RDW 14.3 % (11.9-15.9) D 05/13/17 06:08 Plt Count 227 K/MM3 (134-434) D 05/13/17 06:08 MPV 9.2 fl (7.5-11.1) D 05/13/17 06:08 Platelet Estimate Adequate (NORMAL) 05/13/17 06:08 Platelet Comment No clumping noted 05/13/17 06:08 Sodium 137 mmol/L (136-145) 05/13/17 06:08 Potassium 4.0 mmol/L (3.5-5.1) 05/13/17 06:08 Chloride 102 mmol/L (98-107) 05/13/17 06:08 Carbon Dioxide 29 mmol/L (21-32) 05/13/17 06:08 Anion Gap 6 (8-16) L 05/13/17 06:08 BUN 11 mg/dL (7-18) 05/13/17 06:08 Creatinine 1.0 mg/dL (0.7-1.3) 05/13/17 06:08 Creat Clearance w eGFR > 60 (>60) 05/13/17 06:08 Random Glucose 81 mg/dL (74-106) D 05/13/17 06:08 Calcium 9.2 mg/dL (8.5-10.1) 05/13/17 06:08 Total Bilirubin 0.7 mg/dL (0.2-1.0) D 05/13/17 06:08 AST 25 U/L (15-37) D 05/13/17 06:08 ALT 25 U/L (12-78) 05/13/17 06:08 Alkaline Phosphatase 109 U/L (45-117) 05/13/17 06:08 Total Protein 7.8 g/dl (6.4-8.2) 05/13/17 06:08 Albumin 4.2 g/dl (3.4-5.0) 05/13/17 06:08 Urine Color Yellow 05/12/17 17:30 Urine Appearance Slcloudy 05/12/17 17:30 Urine pH 6.0 (5.0-8.0) 05/12/17 17:30 Ur Specific [place] 1.015 (1.005-1.025) 05/12/17 17:30 Urine Protein Negative (NEGATIVE) 05/12/17 17:30 Urine Glucose (UA) Negative (NEGATIVE) 05/12/17 17:30 Urine Ketones Negative (NEGATIVE) 05/12/17 17:30 Urine Blood Negative (NEGATIVE) 05/12/17 17:30 Urine Nitrite Negative (NEGATIVE) 05/12/17 17:30 Urine Bilirubin Negative (NEGATIVE) 05/12/17 17:30 Urine Urobilinogen Negative mg/dL (0.2-1.0) 05/12/17 17:30 Ur Leukocyte Esterase Negative (NEGATIVE) 05/12/17 17:30 RPR Titer Nonreactive (NONREACTIVE) 05/13/17 06:08 LAB NOTED - Treatment Hospital Course: Detox Protocol Followed, Responded well Patient has Accepted a Rehab Referral to: [facility] - Medication Discharge Medications: Ambulatory Orders Albuterol Sulfate Inhaler - [Ventolin HFA Inhaler -] 2 inh IH Q4H PRN 08/01/12 Salmeterol/Fluticasone [Advair 500Mcg/50Mcg -] 1 inh PO BID 08/04/16 - AMA Did Patient Leave Against Medical Advice: Yes
== END 2017-05-16 19:56 | disposition left against medical advice (07) | DRG 894 ==
LOC: YASAS 09:33 → Y3N 13:20
PROVIDERS: ADMIT Internal Medicine; ATTEND Internal Medicine
PROC: HZ2ZZZZ Detoxification Services for Substance Abuse Treatment (ICD-10-PCS; principal; 2017-05-12)
DX: F11.23 Opioid dependence with withdrawal (principal); F14.20 Cocaine dependence, uncomplicated; F12.20 Cannabis dependence, uncomplicated; F17.210 Nicotine dependence, cigarettes, uncomplicated; J45.909 Unspecified asthma, uncomplicated; R00.0 Tachycardia, unspecified; M54.5 Low back pain; G89.29 Other chronic pain; M21.371 Foot drop, right foot; Z91.013 Allergy to seafood; Z98.1 Arthrodesis status
CPT/HCPCS: 36415; 80053; 81003; 85027; 86593; 93005; 93010

== ENCOUNTER 2017-08-22 13:33 | Inpatient (IN) | payer OTHER ==
[2017-08-22 15:19] VITALS: BMI 21.9
--- NOTE | 2017-08-22 15:48 | HP ---
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 Allergies/Adverse Reactions: Allergies Allergy/AdvReac Type Severity Reaction Status Date / Time Fish Containing Products Allergy Severe Rash Verified 08/22/17 15:42 No Known Drug Allergies Allergy Verified 08/22/17 15:42 History of Present Illness: Patient is a 51 YO male here to detox from Heroin. Patient has had several previous Detox admissions at [facility] (last: 04/2017). Longest period of non-drug use in recent years: approx. 1.5 years (2014 - 2015). Exam Limitations: No Limitations - Ebola screening Have you traveled outside of the country in the last 21 days: No Have you had contact with anyone from an Ebola affected area: No Have you been sick,other than usual withdrawal symptoms: No Do you have a fever: No - Review of Systems Constitutional: Chills, Diaphoresis, Fever, Loss of Appetite, Malaise, Changes in sleep, Unintentional Wgt. Loss (Lost approx. 30 lbs. over last 4 months.) EENT: reports: Blurred Vision, Nose Congestion, Sinus Pressure, Dental Problems (Several cracked teeth on upper mouth. Patient states that he is okay to consume / chew regular food.) Respiratory: reports: No Symptoms reported Cardiac: reports: No Symptoms Reported GI: reports: Nausea, Poor Appetite : reports: No Symptoms Reported Musculoskeletal: reports: Back Pain, Joint Pain, Joint Stiffness Integumentary: reports: No Symptoms Reported Neuro: reports: Tremors Endocrine: reports: No Symptoms Reported Hematology: reports: No Symptoms Reported Psychiatric: reports: Judgement Intact, Mood/Affect Appropiate, Orientated x3, Anxious Other Systems: Reviewed and Negative Patient History - Patient Medical History Hx Anemia: No Hx Asthma: Yes (advair 500/50, albuterol inhalers ) Hx Chronic Obstructive Pulmonary Disease (COPD): No Hx Cancer: No Hx Cardiac Disorders: No Hx Congestive Heart Failure: No Hx Hypertension: No Hx Hypercholesterolemia: No Hx Pacemaker: No HX Cerebrovascular Accident: No Hx Seizures: No Hx Dementia: No Hx Diabetes: No Hx Gastrointestinal Disorders: No Hx Liver Disease: No Hx Genitourinary Disorders: No Hx Sexually Transmitted Disorders: No Hx Renal Disease (ESRD): No Hx Thyroid Disease: No Hx Human Immunodeficiency Virus (HIV): No (Last Tested approx. 1 month ago: NEGATIVE.) Hx Hepatitis C: No (Last Tested approx. 4 monthS ago: NEGATIVE.) Hx Depression: No Hx Suicide Attempt: No (PATIENT DENIES CURRENT SI / HI.) Hx Bipolar Disorder: No Hx Schizophrenia: No Other Medical History: DENIES. - Patient Surgical History Past Surgical History: Yes Hx Neurologic Surgery: No Hx Cataract Extraction: No Hx Cardiac Surgery: No Hx Lung Surgery: No Hx Breast Surgery: No Hx Breast Biopsy: No Hx Abdominal Surgery: No Hx Appendectomy: No Hx Cholecystectomy: No Hx Genitourinary Surgery: No Hx Section: No Hx Orthopedic Surgery: Yes (11/02/2010 - spinal fusion, 2015-removal of spinal hardware ) Other Surgical History: Spinal sx 05/01 [facility] to remove hardware Anesthesia Reaction: No - PPD History Documented Results: Positive w/o proof Implanted On Prior [facility] Admission?: No Date: 04/10/15 (Complerted Treatment in 1989.) Results: cxr 04/30/16 PPD to be Administered?: No - Reproductive History Patient is a Female of Child Bearing Age (11 -55 yrs old): No (PATIENT IS MALE.) - Smoking Cessation Smoking history: Current every day smoker Have you smoked in the past 12 months: Yes Aproximately how many cigarettes per day: 3 Cigars Per Day: 0 Hx Chewing Tobacco Use: No Initiated information on smoking cessation: Yes 'Breaking Loose' booklet given: 08/22/17 (GIVEN TO PATIENT.) - Substance & Tx. History Hx Alcohol Use: No Hx Substance Use: Yes Substance Use Type: Heroin Hx Substance Use Treatment: Yes (Previous Detox admissions at [facility] (Last: 2016).) - Substances Abused Heroin Route: Inhalation Frequency: Daily Amount used: 3-5 Bags Age of first use: 46 Date of Last Use: 08/22/17 Family Disease History - Family Disease History Family Disease History: Diabetes: Grandparent (MATERNAL GM/GGF-) Admission Physical Exam [facility] - Vital Signs Vital Signs: Vital Signs - 24 hr 08/22/17 15:18 Temperature 96.6 F L Pulse Rate 81 Respiratory 18 Rate Blood Pressure 124/67 - Physical General Appearance: Yes: No Apparent Distress, Nourished, Appropriately Dressed , Tremorous, Anxious HEENTM: Yes: Hearing grossly Normal, Normocephalic, Normal Voice, SHERRON, Pharynx Normal Respiratory: Yes: Chest Non-Tender, No Respiratory Distress, No Accessory Muscle Use, Wheezing Neck: Yes: No masses,lesions,Nodules, Supple, Trachea in good position Breast: Yes: Breast Exam Deferred Cardiology: Yes: Regular Rhythm, Regular Rate, S1, S2 Abdominal: Yes: Normal Bowel Sounds, Non Tender, Flat, Soft Genitourinary: Yes: Within Normal Limits Back: Yes: Decreased Range of Motion Musculoskeletal: Yes: Gait Steady, Back pain, Joint Stiffness Extremities: Yes: Normal Capillary Refill, Tremors Neurological: Yes: Fully Oriented, Alert, Normal Mood/Affect, Normal Response Integumentary: Yes: Normal Color, Dry, Warm Lymphatic: Yes: Within Normal Limits - Diagnostic (1) Asthma Current Visit: Yes Status: Chronic (2) Chronic back pain Current Visit: Yes Status: Chronic Qualifiers: Back pain location: low back pain Back pain laterality: midline Sciatica presence: without sciatica Qualified Code(s): M54.5 - Low back pain (3) Nicotine dependence Current Visit: Yes Status: Chronic (4) Opioid dependence with withdrawal Current Visit: Yes Status: Acute Cleared for Admission [facility] - Detox or Rehab [facility] Level of Care: Medically Managed Detox Regimen/Protocol: Methadone [facility] Breath Alcohol Content Breath Alcohol Content: 0 Urine Drug Screen - Results Drug Screen Negative: No Urine Drug Screen Results: THC-Marijuana, JASON-Cocaine, OPI-Opiates, MTD- Methadone, OXY-Oxycodone
[2017-08-22] MEDS ORDERED: MAGNESIUM CITRATE 300 ML BOTTLE PO PRN (16:05)
[2017-08-22] MEDS ORDERED: ACETAMINOPHEN 325 MG TABLET (FP) PO PRN (16:05)
[2017-08-22] MEDS ORDERED: MAGNESIUM HYDROX 2400MG/30ML ORAL SUSPENSION 30 ML CUP PO PRN (16:05)
[2017-08-22] MEDS ORDERED: guaiFENesin/D-METHORPHAN HB 10 ML UNIT-DOSE CUPS PO PRN (16:05)
[2017-08-22] MEDS ORDERED: METHADONE HCL 10 MG TABLET (FOR DETOX USE ONLY) PO ONE ×3 (16:05→23:00)
[2017-08-22] MEDS ORDERED: IBUPROFEN 400 MG TABLET (FP) PO PRN (16:05)
[2017-08-22] MEDS ORDERED: MAG HYDROX/AL HYDROX/SIMETH 30 ML UNIT-DOSE CUP PO PRN (16:05)
[2017-08-22] MEDS ORDERED: MENTHOL/PHENOL 1 EACH UD MM PRN (16:05)
[2017-08-22] MEDS ORDERED: P-EPHED 60MG/TRIPROLIDI 2.5MG TABLET PO PRN (16:05)
[2017-08-22] MEDS ORDERED: LOPERAMIDE HCL 2 MG CAPSULE PO PRN (16:05)
[2017-08-22] MEDS ORDERED: ALBUTEROL SO4 18 GM HFA INHALER IH PRN (16:10)
[2017-08-22] MEDS: diazePAM 5 MG TABLET PO PRN (19:04)
[2017-08-22] MEDS: THIAMINE HCL 100 MG TABLET (FP) PO SCH (22:21)
[2017-08-22] MEDS: BUDESONIDE/FORMETEROL FUMARATE 160/4.5 mcg INHALER IH SCH (22:23)
[2017-08-22 23:20] LABS: URINE APPEARANCE CLEAR; URINE BILIRUBIN NEGATIVE (NEGATIVE); URINE BLOOD NEGATIVE (NEGATIVE); URINE COLOR YELLOW; URINE GLUCOSE (UA) NEGATIVE (NEGATIVE); URINE KETONE NEGATIVE (NEGATIVE); URINE LEUK ESTERASE NEGATIVE (NEGATIVE); URINE NITRITE NEGATIVE (NEGATIVE); URINE PROTEIN NEGATIVE (NEGATIVE); URINE UROBILINOGEN NEGATIVE mg/dL (0.2-1.0)
[2017-08-23] MEDS ORDERED: METHADONE HCL 10 MG TABLET (FOR DETOX USE ONLY) PO ONE (10:00)
[2017-08-23 10:33] LABS: HEMATOCRIT 44.9 % (35.4-49); HEMOGLOBIN 14.7 GM/dL (11.7-16.9); MCH 29.4 pg (25.7-33.7); MCHC 32.7 g/dl (32.0-35.9); MEAN CELL VOLUME 90.1 fl (80-96); MEAN PLT VOLUME 8.2 fl (7.5-11.1); PLATELET COUNT 203 K/MM3 (134-434); RBC 4.98 M/mm3 (4.00-5.60); RDW 14.4 % (11.9-15.9); WHITE BLOOD COUNT 6.6 K/mm3 (4.0-10.0)
[2017-08-23 10:35] LABS: ALBUMIN 3.3 g/dl (3.4-5.0); ANION GAP 6 (8-16); BLOOD UREA NITROGEN 17 mg/dL (7-18); CHLORIDE 105 mmol/L (98-107); CO2 31 mmol/L (21-32); GLUCOSE,RANDOM 86 mg/dL (74-106); POTASSIUM 4.3 mmol/L (3.5-5.1); SODIUM 142 mmol/L (136-145)
[2017-08-23 10:41] LABS: ALK PHOS 89 U/L (45-117); BILIRUBIN,TOTAL 0.5 mg/dL (0.2-1.0); CREATININE 0.7 mg/dL (0.7-1.3); SGOT/AST 15 U/L (15-37); SGPT/ALT 19 U/L (12-78); TOT PROT 6.4 g/dl (6.4-8.2)
--- NOTE | 2017-08-23 10:54 | EKG ---
Test Reason : Blood Pressure : / mmHG Vent. Rate : 058 BPM Atrial Rate : 058 BPM P-R Int : 154 ms QRS Dur : 094 ms QT Int : 396 ms P-R-T Axes : 058 071 061 degrees QTc Int : 388 ms SINUS BRADYCARDIA OTHERWISE NORMAL ECG WHEN COMPARED WITH ECG OF 12-MAY-2017 16:02, QT HAS SHORTENED Confirmed by BRANDIN RIVERA, DESHAWN ([id number]) on 08/23/2017 10:54:12 AM Referred By: Confirmed By:DESHAWN GHOTRA MD
[2017-08-23] MEDS: PRENATAL VITAMINS W/ FOLIC ACID TABLET (FP) PO SCH (11:06)
[2017-08-23] MEDS: diazePAM 5 MG TABLET PO PRN ×2 (11:06→17:26)
[2017-08-23] MEDS: BUDESONIDE/FORMETEROL FUMARATE 160/4.5 mcg INHALER IH SCH ×2 (11:09→22:55)
--- NOTE | 2017-08-23 11:51 | PN ---
BHS COWS - Scale Resting Pulse: 0= [place] 80 or Below Sweatin= Chills/Flushing Restless Observation: 3= Extraneous Movement Pupil Size: 1= Pupils >than Normal Bone or Joint Aches: 2= Severe Diffuse Aches Runny Nose/ Eye Tearin= Runny Nose/Eyes GI Upset > 30mins: 2= Nausea/Diarrhea Tremor Observation of Outstretched Hands: 2= Slight Tremor Visible Yawning Observation: 1= 1-2x During Session Anxiety or Irritability: 2=Irritable/Anxious Goose Flesh Skin: 0=Smooth Skin COWS Score: 16 S Progress Note (SOAP) Subjective: ALERT,IRRITABLE,ANXIOUS,INTERRUPTED SLEEP,TREMOR,PAIN IN THE BODY AND BACK Objective: 08/23/17 11:48 Vital Signs Temperature 96.1 F L 08/23/17 10:01 Pulse Rate 78 08/23/17 10:01 Respiratory Rate 18 08/23/17 10:01 Blood Pressure 142/78 08/23/17 10:01 O2 Sat by Pulse Oximetry (%) EKG SINUS BRADYCARDIA 58/MIN NO CHEST PAIN,NO SOB,NO DIZZINESS Laboratory Last Values WBC 6.6 K/mm3 (4.0-10.0) 08/23/17 07:30 RBC 4.98 M/mm3 (4.00-5.60) 08/23/17 07:30 Hgb 14.7 GM/dL (11.7-16.9) 08/23/17 07:30 Hct 44.9 % (35.4-49) 08/23/17 07:30 MCV 90.1 fl (80-96) 08/23/17 07:30 MCH 29.4 pg (25.7-33.7) 08/23/17 07:30 MCHC 32.7 g/dl (32.0-35.9) 08/23/17 07:30 RDW 14.4 % (11.9-15.9) 08/23/17 07:30 Plt Count 203 K/MM3 (134-434) 08/23/17 07:30 MPV 8.2 fl (7.5-11.1) D 08/23/17 07:30 Sodium 142 mmol/L (136-145) 08/23/17 07:30 Potassium 4.3 mmol/L (3.5-5.1) 08/23/17 07:30 Chloride 105 mmol/L (98-107) 08/23/17 07:30 Carbon Dioxide 31 mmol/L (21-32) 08/23/17 07:30 Anion Gap 6 (8-16) L 08/23/17 07:30 BUN 17 mg/dL (7-18) D 08/23/17 07:30 Creatinine 0.7 mg/dL (0.7-1.3) D 08/23/17 07:30 Creat Clearance w eGFR > 60 (>60) 08/23/17 07:30 Random Glucose 86 mg/dL (74-106) 08/23/17 07:30 Calcium 9.0 mg/dL (8.5-10.1) 08/23/17 07:30 Total Bilirubin 0.5 mg/dL (0.2-1.0) D 08/23/17 07:30 AST 15 U/L (15-37) D 08/23/17 07:30 ALT 19 U/L (12-78) D 08/23/17 07:30 Alkaline Phosphatase 89 U/L (45-117) 08/23/17 07:30 Total Protein 6.4 g/dl (6.4-8.2) 08/23/17 07:30 Albumin 3.3 g/dl (3.4-5.0) L D 08/23/17 07:30 Urine Color Yellow 08/22/17 08:20 Urine Appearance Clear 08/22/17 08:20 Urine pH 5.0 (5.0-8.0) 08/22/17 08:20 Ur Specific [place] 1.023 (1.001-1.035) 08/22/17 08:20 Urine Protein Negative (NEGATIVE) 08/22/17 08:20 Urine Glucose (UA) Negative (NEGATIVE) 08/22/17 08:20 Urine Ketones Negative (NEGATIVE) 08/22/17 08:20 Urine Blood Negative (NEGATIVE) 08/22/17 08:20 Urine Nitrite Negative (NEGATIVE) 08/22/17 08:20 Urine Bilirubin Negative (NEGATIVE) 08/22/17 08:20 Urine Urobilinogen Negative mg/dL (0.2-1.0) 08/22/17 08:20 Ur Leukocyte Esterase Negative (NEGATIVE) 08/22/17 08:20 08/23/17 11:50 LABS PENDING Assessment: 08/23/17 11:50 WITHDRAWAL SYMPTOM Plan: CONTINUE DETOX
[2017-08-23] MEDS: THIAMINE HCL 100 MG TABLET (FP) PO SCH (22:55)
[2017-08-24] MEDS ORDERED: METHADONE HCL 5 MG TABLET (FOR DETOX USE ONLY) PO ONE (10:00)
[2017-08-24] MEDS: BUDESONIDE/FORMETEROL FUMARATE 160/4.5 mcg INHALER IH SCH ×2 (10:47→22:25)
[2017-08-24] MEDS: PRENATAL VITAMINS W/ FOLIC ACID TABLET (FP) PO SCH (10:47)
[2017-08-24] MEDS: diazePAM 5 MG TABLET PO PRN ×3 (10:47→22:24)
--- NOTE | 2017-08-24 11:43 | PN ---
BHS COWS - Scale Resting Pulse: 1= [place] 81-100 Sweatin=Flushed/Facial Moisture Restless Observation: 3= Extraneous Movement Pupil Size: 1= Pupils >than Normal Bone or Joint Aches: 2= Severe Diffuse Aches Runny Nose/ Eye Tearin= Runny Nose/Eyes GI Upset > 30mins: 3= Vomiting/Diarrhea Tremor Observation of Outstretched Hands: 2= Slight Tremor Visible Yawning Observation: 1= 1-2x During Session Anxiety or Irritability: 2=Irritable/Anxious Goose Flesh Skin: 0=Smooth Skin COWS Score: 19 BHS Progress Note (SOAP) Subjective: ALERT,IRRITABLE,ANXIOUS,INTERRUPTED SLEEP,PAIN IN THE BODY AND BACK Objective: 08/24/17 11:41 Vital Signs Temperature 98 F 08/24/17 10:13 Pulse Rate 95 H 08/24/17 10:13 Respiratory Rate 16 08/24/17 10:13 Blood Pressure 126/81 08/24/17 10:13 O2 Sat by Pulse Oximetry (%) Laboratory Last Values WBC 6.6 K/mm3 (4.0-10.0) 08/23/17 07:30 RBC 4.98 M/mm3 (4.00-5.60) 08/23/17 07:30 Hgb 14.7 GM/dL (11.7-16.9) 08/23/17 07:30 Hct 44.9 % (35.4-49) 08/23/17 07:30 MCV 90.1 fl (80-96) 08/23/17 07:30 MCH 29.4 pg (25.7-33.7) 08/23/17 07:30 MCHC 32.7 g/dl (32.0-35.9) 08/23/17 07:30 RDW 14.4 % (11.9-15.9) 08/23/17 07:30 Plt Count 203 K/MM3 (134-434) 08/23/17 07:30 MPV 8.2 fl (7.5-11.1) D 08/23/17 07:30 Sodium 142 mmol/L (136-145) 08/23/17 07:30 Potassium 4.3 mmol/L (3.5-5.1) 08/23/17 07:30 Chloride 105 mmol/L (98-107) 08/23/17 07:30 Carbon Dioxide 31 mmol/L (21-32) 08/23/17 07:30 Anion Gap 6 (8-16) L 08/23/17 07:30 BUN 17 mg/dL (7-18) D 08/23/17 07:30 Creatinine 0.7 mg/dL (0.7-1.3) D 08/23/17 07:30 Creat Clearance w eGFR > 60 (>60) 08/23/17 07:30 Random Glucose 86 mg/dL (74-106) 08/23/17 07:30 Calcium 9.0 mg/dL (8.5-10.1) 08/23/17 07:30 Total Bilirubin 0.5 mg/dL (0.2-1.0) D 08/23/17 07:30 AST 15 U/L (15-37) D 08/23/17 07:30 ALT 19 U/L (12-78) D 08/23/17 07:30 Alkaline Phosphatase 89 U/L (45-117) 08/23/17 07:30 Total Protein 6.4 g/dl (6.4-8.2) 08/23/17 07:30 Albumin 3.3 g/dl (3.4-5.0) L D 08/23/17 07:30 Urine Color Yellow 08/22/17 08:20 Urine Appearance Clear 08/22/17 08:20 Urine pH 5.0 (5.0-8.0) 08/22/17 08:20 Ur Specific Buckner 1.023 (1.001-1.035) 08/22/17 08:20 Urine Protein Negative (NEGATIVE) 08/22/17 08:20 Urine Glucose (UA) Negative (NEGATIVE) 08/22/17 08:20 Urine Ketones Negative (NEGATIVE) 08/22/17 08:20 Urine Blood Negative (NEGATIVE) 08/22/17 08:20 Urine Nitrite Negative (NEGATIVE) 08/22/17 08:20 Urine Bilirubin Negative (NEGATIVE) 08/22/17 08:20 Urine Urobilinogen Negative mg/dL (0.2-1.0) 08/22/17 08:20 Ur Leukocyte Esterase Negative (NEGATIVE) 08/22/17 08:20 RPR Titer Nonreactive (NONREACTIVE) 08/23/17 07:30 Assessment: 08/24/17 11:42 WITHDRAWAL SYMPTOM Plan: CONTINUE DETOX
[2017-08-24] MEDS: THIAMINE HCL 100 MG TABLET (FP) PO SCH (22:24)
[2017-08-25] MEDS: diazePAM 5 MG TABLET PO PRN ×2 (03:36→09:29)
[2017-08-25] MEDS: PRENATAL VITAMINS W/ FOLIC ACID TABLET (FP) PO SCH (09:30)
[2017-08-25] MEDS ORDERED: METHADONE HCL 5 MG TABLET (FOR DETOX USE ONLY) PO ONE (10:00)
[2017-08-25] MEDS: CYCLOBENZAPRINE HCL 10 MG TABLET (FP) PO PRN (11:24)
[2017-08-25] MEDS: FLUTICASONE/SALMETEROL 100 MCG/50 MCG DISKUS IH SCH ×2 (11:24→23:07)
--- NOTE | 2017-08-25 11:59 | PN ---
[facility] Progress Note (SOAP) Subjective: ALERT,IRRITABLE,ANXIOUS,INTERRUPTED SLEEP,PAIN IN THE BODY AND BACK Objective: 08/25/17 11:59 Vital Signs Temperature 98.1 F 08/25/17 11:38 Pulse Rate 89 08/25/17 11:38 Respiratory Rate 18 08/25/17 11:38 Blood Pressure 115/72 08/25/17 11:38 O2 Sat by Pulse Oximetry (%) Assessment: 08/25/17 11:59 WITHDRAWAL SYMPTOM Plan: CONTINUE DETOX
[2017-08-25] MEDS: THIAMINE HCL 100 MG TABLET (FP) PO SCH (23:07)
[2017-08-26] MEDS ORDERED: METHADONE HCL 10 MG TABLET (FOR DETOX USE ONLY) PO ONE (10:00)
[2017-08-26] MEDS: CYCLOBENZAPRINE HCL 10 MG TABLET (FP) PO PRN ×2 (12:04→22:18)
[2017-08-26] MEDS: PRENATAL VITAMINS W/ FOLIC ACID TABLET (FP) PO SCH (12:04)
[2017-08-26] MEDS: FLUTICASONE/SALMETEROL 100 MCG/50 MCG DISKUS IH SCH ×2 (12:06→22:17)
--- NOTE | 2017-08-26 14:36 | PN ---
[facility] Progress Note (SOAP) Subjective: sweats shakes diarrhea Objective: 08/26/17 14:35 A & O x3 Not in acute distress Vital Signs Temperature 97.9 F 08/26/17 10:00 Pulse Rate 88 08/26/17 10:00 Respiratory Rate 18 08/26/17 10:00 Blood Pressure 102/77 08/26/17 10:00 O2 Sat by Pulse Oximetry (%) Assessment: 08/26/17 14:35 withdrawal sx Plan: continue detox
[2017-08-26] MEDS: THIAMINE HCL 100 MG TABLET (FP) PO SCH (22:17)
[2017-08-27] MEDS ORDERED: METHADONE HCL 5 MG TABLET (FOR DETOX USE ONLY) PO ONE (06:00)
[2017-08-27 06:35] VITALS: BP 109/59; PULSE 70; TEMP 97.9
--- NOTE | 2017-08-27 09:00 | DS ---
[facility] Detox Discharge Summary Admission Date: 08/22/17 Discharge Date: 08/27/17 - History Present History: Opioid Dependence - Physical Exam Results Vital Signs: Vital Signs Temperature 97.9 F 08/27/17 06:00 Pulse Rate 70 08/27/17 06:00 Respiratory Rate 16 08/27/17 06:00 Blood Pressure 109/59 08/27/17 06:00 O2 Sat by Pulse Oximetry (%) Pertinent Admission Physical Exam Findings: withdrawal sx Vital Signs Temperature 97.9 F 08/27/17 06:00 Pulse Rate 70 08/27/17 06:00 Respiratory Rate 16 08/27/17 06:00 Blood Pressure 109/59 08/27/17 06:00 O2 Sat by Pulse Oximetry (%) Laboratory Last Values WBC 6.6 K/mm3 (4.0-10.0) 08/23/17 07:30 RBC 4.98 M/mm3 (4.00-5.60) 08/23/17 07:30 Hgb 14.7 GM/dL (11.7-16.9) 08/23/17 07:30 Hct 44.9 % (35.4-49) 08/23/17 07:30 MCV 90.1 fl (80-96) 08/23/17 07:30 MCH 29.4 pg (25.7-33.7) 08/23/17 07:30 MCHC 32.7 g/dl (32.0-35.9) 08/23/17 07:30 RDW 14.4 % (11.9-15.9) 08/23/17 07:30 Plt Count 203 K/MM3 (134-434) 08/23/17 07:30 MPV 8.2 fl (7.5-11.1) D 08/23/17 07:30 Sodium 142 mmol/L (136-145) 08/23/17 07:30 Potassium 4.3 mmol/L (3.5-5.1) 08/23/17 07:30 Chloride 105 mmol/L (98-107) 08/23/17 07:30 Carbon Dioxide 31 mmol/L (21-32) 08/23/17 07:30 Anion Gap 6 (8-16) L 08/23/17 07:30 BUN 17 mg/dL (7-18) D 02/07/18 07:30 Creatinine 0.7 mg/dL (0.7-1.3) D 08/23/17 07:30 Creat Clearance w eGFR > 60 (>60) 08/23/17 07:30 Random Glucose 86 mg/dL (74-106) 08/23/17 07:30 Calcium 9.0 mg/dL (8.5-10.1) 08/23/17 07:30 Total Bilirubin 0.5 mg/dL (0.2-1.0) D 08/23/17 07:30 AST 15 U/L (15-37) D 08/23/17 07:30 ALT 19 U/L (12-78) D 08/23/17 07:30 Alkaline Phosphatase 89 U/L (45-117) 08/23/17 07:30 Total Protein 6.4 g/dl (6.4-8.2) 08/23/17 07:30 Albumin 3.3 g/dl (3.4-5.0) L D 08/23/17 07:30 Urine Color Yellow 08/22/17 08:20 Urine Appearance Clear 08/22/17 08:20 Urine pH 5.0 (5.0-8.0) 08/22/17 08:20 Ur Specific [place] 1.023 (1.001-1.035) 08/22/17 08:20 Urine Protein Negative (NEGATIVE) 08/22/17 08:20 Urine Glucose (UA) Negative (NEGATIVE) 08/22/17 08:20 Urine Ketones Negative (NEGATIVE) 08/22/17 08:20 Urine Blood Negative (NEGATIVE) 08/22/17 08:20 Urine Nitrite Negative (NEGATIVE) 08/22/17 08:20 Urine Bilirubin Negative (NEGATIVE) 08/22/17 08:20 Urine Urobilinogen Negative mg/dL (0.2-1.0) 08/22/17 08:20 Ur Leukocyte Esterase Negative (NEGATIVE) 08/22/17 08:20 RPR Titer Nonreactive (NONREACTIVE) 08/23/17 07:30 lab noted - Treatment Hospital Course: Detox Protocol Followed, Detoxed Safely, Responded well, Discharged Condition Good, Rehab Referral Accepted Patient has Accepted a Rehab Referral to: as per counselor arranged - Medication Discharge Medications: Ambulatory Orders Albuterol Sulfate Inhaler - [Ventolin HFA Inhaler -] 2 inh IH Q4H PRN 01/16/13 Salmeterol/Fluticasone [Advair 500Mcg/50Mcg -] 1 inh PO BID #1 inh 08/25/17 - Diagnosis (1) Opioid dependence with withdrawal Current Visit: Yes Status: Acute - AMA Did Patient Leave Against Medical Advice: No
== END 2017-08-27 08:53 | disposition home or self-care (01) | DRG 897 ==
LOC: YASAS 13:33 → Y6N 17:27
PROVIDERS: ADMIT Internal Medicine; ATTEND Internal Medicine
PROC: HZ2ZZZZ Detoxification Services for Substance Abuse Treatment (ICD-10-PCS; principal; 2017-08-22)
DX: F11.23 Opioid dependence with withdrawal (principal); F17.210 Nicotine dependence, cigarettes, uncomplicated; J45.909 Unspecified asthma, uncomplicated; M54.5 Low back pain; G89.29 Other chronic pain; Z91.013 Allergy to seafood; Z98.1 Arthrodesis status
CPT/HCPCS: 36415; 71046-TC-FY; 80053; 81003; 85027; 86593; 93005; 93010